=== PATIENT | female | born 1955 | race American Indian/Alaskan Native ===

== ENCOUNTER 2018-10-25 17:14 | Emergency (ER) | payer MEDICARE, MEDICAID ==
[2018-10-25 17:59] VITALS: BMI 31.7
[2018-10-25] MEDS ORDERED: Sodium Chloride 0.9% 1,000 ML IV STA (17:59)
[2018-10-25 18:02] VITALS: RESP 18; TEMP 99.3
--- NOTE | 2018-10-25 18:12 | ED PDOC ---
Arrival/HPI - General Time Seen by Provider: 10/25/18 17:35 Historian: Patient - History of Present Illness Narrative History of Present Illness (Text): 10/25/18 18:09 A 63 year old female, whose past medical history includes diabetes and hypertension, presents to the emergency department s/p mechanical fall from 2 days ago. Patient reports 2 days ago she tripped and fell and the cable box came with her landing on her left lower chest, ribs, and left sided abdomen. Patient notes she has been having persistent pain in these areas and states she experiences pain upon deep breathing. Patient denies any shortness of breath, head injury or any other complaints. PMD: Dr. Cornelius, last admission: Dr. Vickers Time/Duration: Other (2 days) Symptom Onset: Sudden Symptom Course: Unchanged Activities at Onset: Light Context: Home Past Medical History - Provider Review Nursing Documentation Reviewed: Yes - Infectious Disease Hx of Infectious Diseases: None - Tetanus Immunization Tetanus Immunization: Unknown - Cardiac Hx Cardiac Disorders: Yes Hx Hypertension: Yes - Pulmonary Hx Respiratory Disorders: No - Neurological Hx Neurological Disorder: No - HEENT Hx HEENT Disorder: No - Renal Hx Renal Disorder: No - Endocrine/Metabolic Hx Endocrine Disorders: Yes Hx Diabetes Mellitus Type 2: Yes - Hematological/Oncological Hx Blood Disorders: No - Integumentary Hx Dermatological Disorder: No - Musculoskeletal/Rheumatological Hx Musculoskeletal Disorders: No Hx Falls: No - Gastrointestinal Hx Gastrointestinal Disorders: No - Genitourinary/Gynecological Hx Genitourinary Disorders: No - Psychiatric Hx Psychophysiologic Disorder: Yes Hx Bipolar Disorder: Yes Hx Substance Use: No - Surgical History Hx Joint Replacement: Yes (l knee replacement) - Suicidal Assessment Feels Threatened In Home Enviroment: No Family/Social History - Physician Review Nursing Documentation Reviewed: Yes Family/Social History: No Known Family HX Smoking Status: Light Smoker < 10 Cigarettes Daily Hx Alcohol Use: No Hx Substance Use: No Allergies/Home Meds Allergies/Adverse Reactions: Allergies No Known Allergies Allergy (Verified 08/27/16 12:45) Home Medications: Home Meds Medication Instructions Recorded Confirmed Alprazolam [Xanax] 2 mg PO HS PRN 01/10/14 01/10/14 Carvedilol [Coreg] 12.5 mg PO DAILY 01/10/14 01/13/14 NIFEdipine ER [Nifedipine ER] 60 mg PO DAILY 01/10/14 01/13/14 Pravastatin Sodium [Pravachol] 40 mg PO DAILY 01/10/14 01/13/14 Zolpidem Tartrate [Ambien] 10 mg PO HS PRN 01/10/14 01/13/14 Insulin Human Regular [Novolin R] 100 unit SC AC 01/13/14 01/13/14 Review of Systems - Physician Review All systems were reviewed & negative as marked: Yes - Review of Systems Respiratory: absent: SOB Cardiovascular: Chest Pain (left lower chest pain) Gastrointestinal: Abdominal Pain (left sided abdominal tenderness) Neurological: absent: Other (no head injury) Physical Exam Vital Signs Reviewed: Yes Vital Signs Temp Pulse Resp BP Pulse Ox 10/25/18 17:14 99.3 F 115 H 18 100/67 98 Temperature: Afebrile Blood Pressure: Normal Pulse: Tachycardic Respiratory Rate: Normal Mental Status: Positive for: Alert and Oriented X 3 - Systems Exam Head: Present: Atraumatic, Normocephalic Pupils: Present: PERRL Extroacular Muscles: Present: EOMI Conjunctiva: Present: Normal Respiratory/Chest: Present: Clear to Auscultation, Good Air Exchange, Tender to Palpation (tenderness to left lower chest and left sided lower ribs) Cardiovascular: Present: Tachycardic Abdomen: Present: Tenderness (left abdominal tenderness ), Guarding. No: Rebound Back: No: Midline Tenderness Upper Extremity: Present: Normal Inspection. No: Cyanosis, Edema Lower Extremity: Present: Normal Inspection. No: Edema Neurological: Present: GCS=15, CN II-XII Intact, Speech Normal Skin: Present: Warm, Dry, Normal Color. No: Rashes Psychiatric: Present: Alert, Oriented x 3, Normal Insight, Normal Concentration Medical Decision Making ED Course and Treatment: 10/25/18 18:09 Impression: 63 year old female presenting to the emergency room s/p mechanical fall. Differential Diagnosis included but are not limited to: mechanical fall, rule out fracture, rule out abdominal injury. Plan: -- VBG -- Chest CT -- EKG -- Labs -- CBC -- COAGs -- Chest X-ray -- IV fluids -- Urinalysis -- Reassess and disposition Prior Visits: Notes and results from previous visits were reviewed. Progress Notes: 10/25/18 18:10 EKG: Ordered, reviewed, and independently interpreted the EKG. Rate : 120 BPM Rhythm : Sinus tachycardia 10/25/18 18:27 CXR was negative for PTX, or Fracture CT pending. 10/25/18 18:[address] Naylor to f/u CT, reevaluation, and disposition. - RAD Interpretation Radiology Orders: 10/25/18 17:58 CHEST PORTABLE [RAD] Stat 10/25/18 17:59 CHEST, ABDOMEN WITH CONTRAST [CT] Stat - Medication Orders Current Medication Orders: Sodium Chloride (Sodium Chloride 0.9%) 1,000 mls @ 999 mls/hr IV .Q1H1M STA Stop: 10/25/18 18:59 - Scribe Statement The provider has reviewed the documentation as recorded by the Riana Anand All medical record entries made by the Scribe were at my direction and personally dictated by me. I have reviewed the chart and agree that the record accurately reflects my personal performance of the history, physical exam, medical decision making, and the department course for this patient. I have also personally directed, reviewed, and agree with the discharge instructions and disposition. Disposition/Present on Arrival - Present on Arrival Any Indicators Present on Arrival: No History of DVT/PE: No History of Uncontrolled Diabetes: No Urinary Catheter: No History Surgical Site Infection Following: None - Disposition Have Diagnosis and Disposition been Completed?: Yes Diagnosis: Chest pain, Abdominal pain Disposition Time: 19:02 Condition: FAIR Discharge Instructions (ExitCare): Chest Pain (ED) Referrals: Junior Cornelius Jr., MD [Primary Care Provider] - Follow up with primary
[2018-10-25 18:24] LABS: VENOUS BLOOD GAS BASE EXCESS -0.5 mmol/L (0.0-2.0); VENOUS BLOOD GAS PO2 46 mm/Hg (30-55); VENOUS BLOOD PH 7.32 (7.32-7.43)
[2018-10-25 18:28] LABS: BASO # 0.01 K/mm3 (0.0-2.0); BASO % 0.2 % (0.0-3.0); EOS # 0.1 (0.0-0.7); EOS % 1.1 % (1.5-5.0); HEMOGLOBIN 12.5 g/dL (12.0-16.0); LYMPH # 1.6 (1.2-3.4); LYMPH % 29.3 % (22.0-35.0); MEAN CELL VOLUME 80.9 fl (80.0-105.0); MEAN CORPUSCULAR HEMOGLOBIN 25.4 pg (25.0-35.0); MEAN CORPUSCULAR HGB CONC 31.3 g/dl (31.0-37.0); MEAN PLATELET VOLUME 9.7 fl (7.0-11.0); MONO # 0.3 (0.1-0.6); MONO % 4.9 % (1.0-6.0); RBC 4.93 10^6/uL (3.5-6.1); RED CELL DISTRIBUTION WIDTH 14.1 % (11.5-14.5); WHITE BLOOD COUNT 5.6 10^3/uL (4.5-11.0)
[2018-10-25 18:33] LABS: INR 1.11; PROTHROMBIN TIME 12.3 SECONDS (9.4-12.5)
[2018-10-25 18:36] LABS: ALB/GLOB RATIO 1.3 (1.1-1.8); ALBUMIN 4.2 g/dL (3.0-4.8); CALCIUM 9.3 mg/dL (8.4-10.5)
--- NOTE | 2018-10-25 18:47 | RAD ---
Date of service: 10/25/2018 HISTORY: Sepsis Patient COMPARISON: No prior. FINDINGS: LUNGS: The lungs are well inflated and clear. PLEURA: No pleural effusions or pneumothorax. CARDIOVASCULAR: The heart is normal in size. No aortic atherosclerotic calcifications present. OSSEOUS STRUCTURES: Within normal limits for the patient's age. VISUALIZED UPPER ABDOMEN: Normal. OTHER FINDINGS: None. IMPRESSION: No active pulmonary disease.
--- NOTE | 2018-10-25 19:27 | CARD ---
APPROVED REPORT Date of service: 10/25/2018 EKG Measurement Heart [id number] <Conclusion> Sinus tachycardia Possible Left atrial enlargement Pulmonary disease pattern RSR' or QR pattern in V1 suggests right ventricular conduction delay Left anterior fascicular block Abnormal ECG
--- NOTE | 2018-10-25 20:11 | ED PDOC ---
Physical Exam Vital Signs Temp Pulse Resp BP Pulse Ox 10/25/18 19:43 100 H 18 100/78 96 10/25/18 17:14 99.3 F 115 H 18 100/67 98 Medical Decision Making ED Course and Treatment: 10/25/18 20:11 Patient signed out by . Results for imaging still pending. 10/25/18 22:08 CT chest/abdomen, reviewed by radiologist: IMPRESSION: 1. Diffuse thickening of the esophageal mucosal yost suggesting esophagitis. 2. Small hiatal hernia. Electronically signed on Oct 25, 2018 10:01:19 PM EDT by: Vinod Rodriguez M.D., NIKKO Certified By [facility] Fellowship Trained MRI and CT Specialist CT result reviewed and discussed with patient. She still complains of pain after receiving tramadol. Percocet tab given. On further re-eval patient reports feeling better. Able to get out of stretcher, walk, and move to a chair. Rx written for percocet. Patient advised to follow up with PMD as needed. Return to the ED for any new or worsening symptoms. - Lab Interpretations Lab Results: pO2 46 mm/Hg (30-55) 10/25/18 18:05 VBG pH 7.32 (7.32-7.43) 10/25/18 18:05 VBG pCO2 51.0 (40-60) 10/25/18 18:05 VBG HCO3 26.3 mmol/l (21-28) 10/25/18 18:05 VBG Total CO2 27.9 mmol.L (22-28) 10/25/18 18:05 VBG O2 Sat (Calc) 83.1 % (40-65) H 10/25/18 18:05 VBG Base Excess -0.5 mmol/L (0.0-2.0) L 10/25/18 18:05 VBG Potassium 4.2 mmol/L (3.6-5.2) 10/25/18 18:05 Sodium 139.0 mmol/L (132-148) 10/25/18 18:05 Chloride 103.0 mmol/L (98-107) 10/25/18 18:05 Glucose 295 mg/dl (65-105) H 10/25/18 18:05 Lactate 2.1 mmol/L (0.7-2.1) 10/25/18 18:05 FiO2 21.0 % 10/25/18 18:05 PT 12.3 SECONDS (9.4-12.5) 10/25/18 18:05 INR 1.11 10/25/18 18:05 APTT 35.0 Seconds (26.9-38.3) 10/25/18 18:05 Total Bilirubin 0.3 mg/dL (0.2-1.3) 10/25/18 18:05 AST 19 U/L (14-36) 10/25/18 18:05 ALT 10 U/L (7-56) 10/25/18 18:05 Alkaline Phosphatase 166 U/L (38-126) H 10/25/18 18:05 Total Protein 7.5 g/dL (5.8-8.3) 10/25/18 18:05 Albumin 4.2 g/dL (3.0-4.8) 10/25/18 18:05 Globulin 3.3 gm/dL 10/25/18 18:05 Albumin/Globulin Ratio 1.3 (1.1-1.8) 10/25/18 18:05 - RAD Interpretation Radiology Orders: 10/25/18 17:58 CHEST PORTABLE [RAD] Stat 10/25/18 18:40 CHEST, ABDOMEN W/O CONTRAST [CT] Stat - Medication Orders Current Medication Orders: Discontinued Medications Sodium Chloride (Sodium Chloride 0.9%) 1,000 mls @ 999 mls/hr IV .Q1H1M STA Stop: 10/25/18 18:59 Last Admin: 10/25/18 18:08 Dose: 999 mls/hr eMAR Start Stop Document 10/25/18 18:08 EQ (Rec: 10/25/18 18:09 EQ [facility]) Intravenous Solution Start Date 10/25/18 Start Time 18:09 Tramadol HCl (Ultram) 50 mg PO STAT STA Stop: 10/25/18 19:02 Last Admin: 10/25/18 19:55 Dose: 50 mg MAR Pain Assessment Document 10/25/18 19:55 EQ (Rec: 10/25/18 19:55 EQ [facility]) Pain Reassessment Is this a pain reassessment? No - Scribe Statement The provider has reviewed the documentation as recorded by the Scribe Disposition/Present on Arrival - Present on Arrival Any Indicators Present on Arrival: No History of DVT/PE: No History of Uncontrolled Diabetes: No Urinary Catheter: No History of Decub. Ulcer: No History Surgical Site Infection Following: None - Disposition Have Diagnosis and Disposition been Completed?: Yes Diagnosis: Chest pain, Abdominal pain Disposition: HOME/ ROUTINE Disposition Time: 23:58 Condition: FAIR Discharge Instructions (ExitCare): Bruised Rib (DC) Additional Instructions: NIKITA KAMARA, thank you for letting us take care of you today. Your provider was Mariel Naylor MD and you were treated for FALL. The emergency medical care you received today was directed at your acute symptoms. If you were prescribed any medication, please fill it and take as directed. It may take several days for your symptoms to resolve. Return to the Emergency Department if your symptoms worsen, do not improve, or if you have any other problems. Please contact your doctor or call one of the physicians/clinics you have been referred to that are listed on the Patient Visit Information form that is included in your discharge packet. Bring any paperwork you were given at discharge with you along with any medications you are taking to your follow up visit. Our treatment cannot replace ongoing medical care by a primary care provider outside of the emergency department. Thank you for allowing the [facility] team to be part of your care today. If you had an X-Ray or CT scan: A Radiologist will review the ED reading if any change in treatment is needed we will contact you. If you had a blood, urine, or wound culture: It will take several days for the results, if any change in treatment is needed we will contact you. If you had an STI test: It will take 48 hours for the results. Please call after 1 week if you have not heard back. Prescriptions: oxyCODONE/Acetaminophen [Percocet 5/325 mg Tab] 1 ea PO Q6H PRN #9 tab PRN Reason: Pain, Severe (8-10) Referrals: Junior Cornelius Jr., MD [Primary Care Provider] - Follow up with primary Forms: [email or web address] (Nepali)
[2018-10-25 21:59] LABS: VENOUS BLOOD GAS BASE EXCESS -1.7 mmol/L (0.0-2.0); VENOUS BLOOD GAS PO2 39 mm/Hg (30-55); VENOUS BLOOD PH 7.27 (7.32-7.43)
[2018-10-25] MEDS ORDERED: Oxycodone/Acetaminophen 5/325 mg Tab PO STA (22:18)
[2018-10-26 01:27] VITALS: BP 110/74; PULSE 97; O2SAT 100
--- NOTE | 2018-10-26 10:17 | CT ---
Date of service: 10/25/2018 PROCEDURE: CT Chest and abdomen with intravenous and oral contrast HISTORY: trauma r/o fx r/o organ inj; left sided pain COMPARISON: None available. TECHNIQUE: Unenhanced study. Neither oral nor intravenous contrast administered. Sensitivity and specificity for acute inflammatory processes limited by the absence of oral and intravenous contrast. This CT exam was performed using one or more of the following dose reduction techniques: Automated exposure control, adjustment of the mA and/or kV according to patient size, and/or use of iterative reconstruction technique. Total exam DLP = 830.64 mGy-cm. FINDINGS: CT CHEST: LUNGS: Clear. No nodule, mass or consolidation. MEDIASTINUM: Unremarkable. Normal caliber aorta and pulmonary arterial trunk. No aortic dissection. Normal size heart. LYMPH NODES: Unremarkable. PLEURA: Unremarkable. No pneumothorax. No pleural fluid. BONES: Unremarkable. OTHER FINDINGS:: Small hiatal hernia, patulous-dilated proximal esophagus. No focal esophageal lesions detected. Findings suggest esophagitis. Mildly enlarged thyroid with intrathoracic extension. No focal thyroid lesions detected. CT ABDOMEN: LIVER: Unremarkable. No gross lesion or ductal dilatation. GALLBLADDER AND BILE DUCTS: Unremarkable. PANCREAS: Unremarkable. No gross lesion or ductal dilatation. SPLEEN: Unremarkable. ADRENALS: Unremarkable. No mass. KIDNEYS AND URETERS: Unremarkable. No hydronephrosis. No solid mass. VASCULATURE: Unremarkable. No aortic aneurysm. No aortic atherosclerotic calcification or mural plaque present. STOMACH AND BOWEL: Unremarkable, as visualized. The entire bowel was not visualized, as the pelvis was not included in this study. PERITONEUM: Unremarkable. No free fluid. No free air. LYMPH NODES: Unremarkable. No enlarged lymph nodes. BONES: No acute fracture. OTHER FINDINGS: None. IMPRESSION: No acute findings related to/ accounting for the clinical presentation. Additional benign and/or incidental findings described above. Concordant findings (preliminary report) provided by [employer].
== END 2018-10-25 23:58 | disposition home or self-care (01) ==
LOC: ED 17:14
DX: R07.9 Chest pain, unspecified (principal); R10.9 Unspecified abdominal pain; I10 Essential (primary) hypertension; E11.9 Type 2 diabetes mellitus without complications; F17.210 Nicotine dependence, cigarettes, uncomplicated
CPT/HCPCS: 71045; 71250; 74150; 80053; 82803; 83735; 85025; 85610; 85730; 93005; 99285; J7030